=== PATIENT | male | born 1995 | race Caucasian/White ===

== ENCOUNTER 2023-06-27 14:44 | Emergency (ER) | payer SELFPAY ==
[2023-06-27 14:46] VITALS: BP 118/77; PULSE 69; RESP 16; TEMP 36.9; O2SAT 98; BMI 19.9
[2023-06-27] MEDS: PROPARACAINE 0.5% OPHTH SOL 1 DROPS EYE-RIGHT (15:25)
[2023-06-27] MEDS: FLUORESCEIN 1 MG STRIP EYE-RIGHT (15:25)
--- NOTE | 2023-06-27 15:47 | ED_ITS ---
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 He has no idea if this was dust, dirt or some other foreign body. His eye has become itchy, red and painful. His vision has not been affected significantly. After the incident, he irrigated his eye with contact solution and used xglt-rxu-guqdbaf eyedrops to try and soothe it. Related Data Allergies Allergy/AdvReac Type Severity Reaction Status Date / Time No Known Drug Allergies Allergy Verified 06/27/23 14:46 Review of Systems <Gloyr Vigil PA-C - Last Filed: 06/27/23 18:42> Review of Systems ROS Unobtainable: All systems reviewed & are unremarkable except as noted in HPI and below Patient History <Glory Vigil PA-C - Last Filed: 06/27/23 18:42> Social History Smoking Status: Current every day smoker Smoking Status: Current every day smoker tobacco type: vaping alcohol intake frequency: a few times a month Substance Use Type: does not use Exam <Glory Vigil PA-C - Last Filed: 06/27/23 18:42> Narrative Exam Narrative: GENERAL: 28 year old patient appears stated age. Well-developed patient, in no distress. NEURO: AOx3. HEAD: Atraumatic. Normocephalic. ENT: Nose without bleeding or purulent drainage. Airway patent. RESPIRATORY: No distress SKIN: No rash or erythema of visible areas EYES: Pupils equal round and reactive. Extraocular motions intact. No scleral icterus. Right eye conjunctivitis with watery discharge. No visible deformity. I anesthetized the eye with proparacaine and stained with fluorescein. Slit- lamp exam does not show any evidence of corneal abrasion or retained foreign body. Eye irrigated with 1L NS. Upper eyelid everted, small black debris noted on eyelid and removed with qtip. Eyelid replaced to normal position and patient reports foreign body sensation has resolved. Initial Vital Signs Initial Vital Signs: Vital Signs Temperature 98.5 F 06/27/23 14:46 Pulse Rate 69 06/27/23 14:46 Respiratory Rate 16 06/27/23 14:46 Blood Pressure 118/77 06/27/23 14:46 Pulse Oximetry 98 06/27/23 14:46 Oxygen Delivery Method Room Air 06/27/23 14:46 <Dustin Tavarez DO - Last Filed: 07/01/23 07:07> Initial Vital Signs Initial Vital Signs: Vital Signs Temperature 98.5 F 06/27/23 14:46 Pulse Rate 69 06/27/23 14:46 Respiratory Rate 16 06/27/23 14:46 Blood Pressure 118/77 06/27/23 14:46 Pulse Oximetry 98 06/27/23 14:46 Oxygen Delivery Method Room Air 06/27/23 14:46 Course <Glory Vigil PA-C - Last Filed: 06/27/23 18:42> Orders Ordered: Discontinued Medications Fluorescein Sodium (Fluorescein 1 Mg Strip) 1 mg EYE-RIGHT NOW ONE Stop: 06/27/23 15:19 Last Admin: 06/27/23 15:25 Dose: 1 mg Documented By: RB Proparacaine HCl (Proparacaine 0.5% Ophth Linda) 1 drops EYE-RIGHT PRN PRN PRN Reason: eye pain Last Admin: 06/27/23 15:25 Dose: 1 drops Documented By: RB Vital Signs Vital signs: Vital Signs - 8 hr 06/27/23 14:46 06/27/23 16:21 Temperature 98.5 F 97.9 F Pulse Rate 69 68 Respiratory Rate 16 16 Blood Pressure 118/77 122/76 Pulse Oximetry 98 98 Oxygen Delivery Method Room Air Room Air <DO Jewel [place] Last Filed: 07/01/23 07:07> Orders Ordered: Discontinued Medications Fluorescein Sodium (Fluorescein 1 Mg Strip) 1 mg EYE-RIGHT NOW ONE Stop: 06/27/23 15:19 Last Admin: 06/27/23 15:25 Dose: 1 mg Documented By: RB Proparacaine HCl (Proparacaine 0.5% Ophth Linda) 1 drops EYE-RIGHT PRN PRN PRN Reason: eye pain Last Admin: 06/27/23 15:25 Dose: 1 drops Documented By: RB Vital Signs Vital signs: Vital Signs - 8 hr 06/27/23 14:46 06/27/23 16:21 Temperature 98.5 F 97.9 F Pulse Rate 69 68 Respiratory Rate 16 16 Blood Pressure 118/77 122/76 Pulse Oximetry 98 98 Oxygen Delivery Method Room Air Room Air MDM - Eye Problem <Glory Vigil PA-C - Last Filed: 06/27/23 18:42> MDM Narrative Medical decision making narrative: Multiple etiologies for patient's symptoms considered including, but not limited to: Retained foreign body versus irritation from foreign body that has been removed, corneal abrasion No corneal abrasion on Wood's lamp exam. Small foreign body removed from upper eyelid and patient states foreign body sensation is completely resolved. Advised jksu-rqx-emyxepj lubricant eye drops. If pain returns or any new symptoms, I advised him to go to the green building engineer tomorrow for further assessment. Patient's symptoms improved over duration of stay with above-stated therapies. Findings and discharge diagnosis discussed with patient/family followed by verbalization of understanding Return precautions discussed with patient/family whom verbalize understanding of diagnosis and plan Discharge Plan Departure Patient Disposition: Home Clinical Impression: Foreign body in eyeball, right Qualifiers: Encounter type: initial encounter Qualified Code(s): S05.51XA - Penetrating wound with foreign body of right eyeball, initial encounter Instructions: DI for Eye Pain Activity Restrictions/Additional Instructions: *You have been diagnosed with foreign body in your eye. This has been removed. I did not see any evidence of a corneal abrasion or other injury. I would suggest using a iyxv-vsl-xklnysa saline eye drop and resting your eye tonight. The pain is back or you feel worse in the morning, I would suggest going to the eye doctor, particularly [facility], or green building engineer and can use their equipment to fully evaluate your eye. *What to do: *Please continue to take your regular medications as directed. [ ] New medication prescriptions sent to your pharmacy: [ ] [ ] New medication written as a paper prescription [x] No new medications given *Please follow up with your primary care provider in 2-3 days, call for an appointment. Let them know you were seen in the Emergency Department and that we ask that you be seen in follow up. We will electronically transmit a record of today's note if your PCP is in our system *If you do not have a primary care provider please contact the [facility] Resource line at [phone]. They will ask some questions about your medical history and help get you set up with a doctor in the community. *Return to Emergency Department if you should have any new, worsening or concerning symptoms, such as [fever greater than 101 F, shaking chills, worsening pain, persistent vomiting or other concerning symptoms]. Stand Alone Forms: Patient Portal/API ED Sign-out <Dustin Tavarez, DO - Last Filed: 07/01/23 07:07> Cosign ED Attending Cosignature Attestation: Dr Tavarez Co-Sign Statement: I was available for consultation during this patient's emergency department visit. This chart is signed by myself for administrative purposes only. I did not have direct contact with this patient during this visit. They were seen independently by the APC.
[2023-06-27 16:21] VITALS: BP 122/76; PULSE 68; RESP 16; TEMP 36.6; O2SAT 98
== END 2023-06-27 16:22 | disposition home or self-care (01) ==
PROVIDERS: Emergency Provider Physician Assistant
DX: S05.51XA Penetrating wound with foreign body of right eyeball, initial encounter (principal)
CPT/HCPCS: 99282; 99284